=== PATIENT | male | born 1995 | race Caucasian/White ===

== ENCOUNTER 2017-11-18 10:14 | Outpatient (CLI) | payer OTHER ==
[2017-11-18] MEDS ORDERED: EPINEPHrine 1 MG/ML AMP ONE (11:00)
[2017-11-18] MEDS ORDERED: Iopamidol 300 61% 50 ML VIAL FS ONE (11:00)
[2017-11-18] MEDS ORDERED: Gadobenate Dimeglumine 529 MG/1 ML (20ML VIAL) ONE (11:00)
[2017-11-18] MEDS ORDERED: Lidocaine 1% PF 10 ML AMP ONE (11:00)
--- NOTE | 2017-11-18 14:18 | RAD ---
FLUOROSCOPIC GUIDED LEFT SHOULDER ARTHROGRAM: Date: 11-18-17 History: Superior glenoid labral tear. Left shoulder pain after weightlifting injury. Fluoroscopy: Total fluoroscopy time is 0.4 minutes with total dose of 19.7 mGy*cm^2. Technique: After informed consent was obtained, the patient was placed on the fluoroscopy table in donis pine position. The left shoulder was placed in external rotation. An area overlying the upper two thi rds of the left glenohumeral joint were marked and the area was meticulously prepped and draped in [facility] sterile fashion. Skin and subcutaneous tissues were infiltrated with buffered 1% Lidocaine with l ocal anesthesia. A 22 gauge needle was advanced into the left glenohumeral joint. Inter stylet was removed and small a mount of contrast was injected demonstrating free flow of contrast away from the tip of the needle. A s a result, a total volume of 12 ml of a mixture consisting of gadolinium, Isovue 300, Lidocaine, a s mall amount of epinephrine was instilled into the left glenohumeral joint. The needle was removed, an d hemostatis was achieved with direct pressure. Patient tolerated the procedure well and without immediate complication. Patient was transported to [facility] for further imaging. Dry sterile dressing was placed at puncture site. FINDINGS: There is no evidence of fracture, dislocation, or other osseous abnormality involving the left should er. A technically successful left shoulder arthrogram was performed. IMPRESSION: Technically successful left shoulder arthrogram. Please see MRI left shoulder performed after this ex am for further details. POS: [facility]
--- NOTE | 2017-11-18 15:02 | MRI ---
LEFT SHOULDER POST ARTHROGRAM MRI: HISTORY: A 22-year-old male with torn anterior labrum left shoulder, injury with hyperextension with limited r alfonzo of motion and pain. FINDINGS: Multiplanar, multisequence MRI examination of the left shoulder performed following a left shoulder a rthrogram. There is evidence for a SLAP tear with prominent posterior extension to the level of the mid posterio r labrum. There may well be a component of sublabral sulcus superiorly and superior anteriorly as we ll. The rotator cuff appears intact. IMPRESSION: Evidence for superior labrum anterior to posterior tear with primarily posterior extension down to th e level of the mid posterior labrum. There may well be some anterior extension as well verses the ad ditional of a prominent sublabral sulcus. Intact rotator cuff. No evidence of a Hill-Sachs or Banka rt-type injury. POS: [facility]
== END 2017-11-18 10:15 | disposition home or self-care (01) ==
LOC: RAD 10:14
PROVIDERS: ATTEND Orthopaedic Surgery
DX: S43.402A Unspecified sprain of left shoulder joint, initial encounter (principal)
CPT/HCPCS: 23350; A9579; J0171; J7050